=== PATIENT | female | born 1945 | race Two or more races ===

== ENCOUNTER 2018-06-15 14:09 | Inpatient (IN) | payer MEDICARE, MEDICAID ==
[2018-06-15] MEDS ORDERED: Lactated Ringer 1,000 ML IV ONE (14:35)
[2018-06-15 15:03] LABS: % BASOPHILS 0.7 % (0.0-2.0); % EOSINOPHILS 0.6 % (0.0-5.0); % LYMPHOCYTES 10.8 % (20.0-50.0); % NEUTROPHILS 81.9 % (40.0-80.0); BASOPHILE ABSOLUTE 0.1 Th/cumm (0-0.2); HEMATOCRIT 33.1 % (41.0-60); HEMOGLOBIN 11.3 gm/dL (12-16); LYMPHOCYTE ABSOLUTE 0.9 Th/cmm (1.5-3.0); MEAN CELL VOLUME 94.9 fl (81-100); MEAN CORPUSCULAR HEMOGLOBIN 32.3 pg (27.0-31.0); MEAN CORPUSCULAR HGB CONC 34.1 pg (28.0-36.0); MEAN PLATELET VOLUME 7.8 fl; MONOCYTE ABSOLUTE 0.5 Th/cmm (0.3-1.0); NEUTROPHILE ABSOLUTE 6.7 Th/cmm (1.8-8.0); PLATELET COUNT 175 Th/cmm (150-400); RED BLOOD COUNT 3.49 Mil/cmm (3.80-5.20); RED CELL DISTRIBUTION WIDTH 12.3 % (11.5-20.0); WHITE BLOOD COUNT 8.2 Th/cmm (4.8-10.8)
[2018-06-15 15:21] LABS: URINE BILIRUBIN SMALL (NEGATIVE); URINE BLOOD NEGATIVE (NEGATIVE); URINE GLUCOSE (UA) NEGATIVE (NEGATIVE); URINE KETONE TRACE mg/dL (NEGATIVE); URINE LEUKOCYTE ESTERASE NEGATIVE (NEGATIVE); URINE NITRATE NEGATIVE (NEGATIVE); URINE PH 5.5 (4.6 - 8.0); URINE PROTEIN 30 mg/dL (NEGATIVE); URINE SOURCE CLEAN C
[2018-06-15 15:22] LABS: ALB/GLOB RATIO 1.1 (1.0-1.8); ALKALINE PHOSPHATASE 57 U/L (34-104); AMYLASE SERUM 41 U/L (29-103); ANION GAP 16.1 (7.0-16.0); BILIRUBIN,TOTAL 0.5 mg/dL (0.3-1.0); BUN - UREA NITROGEN 20 mg/dL (7-25); CALCIUM SERUM 10.1 mg/dL (8.6-10.3); CARBON DIOXIDE 24.8 mEq/L (21.0-31.0); CHLORIDE 100 mEq/L (98-107); CREATININE - SERUM 0.8 mg/dL (0.6-1.2); GLUCOSE 100 mg/dL (70-105); LIPASE 32 U/L (11-82); PHOSPHOROUS 3.5 mg/dL (2.5-5.0); POTASSIUM SERUM 3.9 mEq/L (3.5-5.1); SGOT 14 U/L (13-39); SGPT/ALT 8 U/L (7-52); SODIUM SERUM 137 mEq/L (136-145); TOTAL PROTEIN,SERUM 7.5 gm/dL (6.0-8.3)
[2018-06-15 15:24] LABS: URINE CLARITY HAZY (CLEAR); URINE COLOR YELLOW; URINE MICROSCOPIC INDICATED? YES
[2018-06-15 15:28] LABS: URINE BACTERIA 1+ /hpf (NONE SEEN); URINE EPITHELIAL CELLS FEW /lpf (FEW); URINE WBC 0-2 /hpf (0-5)
--- NOTE | 2018-06-15 16:10 | ED Physician Chart ---
ED Chief Complaint/HPI - Patient Information Date Seen:: 06/15/18 Time Seen:: 14:33 Chief Complaint:: abd pain & anorexia History of Present Illness:: abd pain & anorexia in a patient with a h/o gallstones and pancreatitis. Allergies:: Allergies Allergy/AdvReac Type Severity Reaction Status Date / Time Penicillins Allergy Verified 06/15/18 14:33 Vitals:: Vital Signs - 8 hr 06/15/18 14:33 Temp 98.8 F HR 86 RR 17 BP 111/62 O2 Sat % 100 Historian:: Family Member, Other (Dr. Nash) Review:: Nurse's Note Reviewed ED Review of Systems - Review of Systems General/Constitutional: No fever, No chills, Weight loss, Weakness, No diaphoresis, Loss of appetite Skin: No skin lesions, No rash, No bruising Head: No headache, No light-headedness Eyes: No loss of vision, No pain, No diplopia ENT: No earache, No nasal drainage, No sore throat, No tinnitus Neck: No neck pain, No swelling, No thyromegaly, No stiffness, No mass noted Cardio Vascular: No chest pain, No palpitations, No PND, No orthopnea, No edema Pulmonary: No SOB, No cough, No sputum, No wheezing GI: Nausea, Vomiting, No diarrhea, Pain, No melena, No hematochezia, Constipation, No hematemesis G/U: No dysuria, No frequency, No hematuria Musculoskeletal: No bone or joint pain, Back pain, No muscle pain Endocrine: No polyuria, No polydipsia Psychiatric: No prior psych history, No depression, No anxiety, No suicidal ideation Hematopoietic: No bruising, No lymphadenopathy Allergic/Immuno: No urticaria, No angioedema Neurological: No syncope, No focal symptoms, No weakness, No paresthesia, No headache, No seizure, No dizziness, No confusion, No vertigo ED Past Medical History - Past Medical History Obtainable: No Past Medical History: Dyslipidemia, Dementia, Other (Alzheimer's; constipation) Psychiatricy History: Dementia Family Medical History - Family Member Mother History Unknown: Yes ED Physical Exam - Physical Examination General/Constitutional: Awake, Alert, Non-toxic appearing Other Gen/Cons comments:: chronically ill appearing c/o abd pain through to back doesn't know when she last passed gas or had a bowel movement. Head: Atraumatic Eyes: Lids, conjuctiva normal, PERRL, EOMI Other Skin comments:: dry mucous membranes (has been drinking alot of coffee) Neck: Nontender, Full ROM w/o pain, No nuchal rigidity, No stridor Respiratory: Nl effort/Exclusion, Clear to Auscultation, No Wheeze/Rhonchi/Rales Cardio Vascular: RRR, No murmur, gallop, rubs, NL S1 S2 GI: No hernia Other GI comments:: tinkles and rushes. not normal bowel sounds. distended. nonspecific tenderness. no peritoneal signs. lower abdomen midline scar. : No CVA tenderness Extremities: No tenderness or effusion, Full ROM, normal strength in all extremities, No edema, Normal digits & nails Neuro/Psych: Mood normal, No focal deficits Misc: Normal back, No paraspinal tenderness ED Labs/Radiology/EKG Results - Lab Results Results: Laboratory Tests 06/15/18 06/15/18 06/15/18 14:55 14:55 14:55 WBC 8.2 RBC 3.49 L Hgb 11.3 L Hct 33.1 L MCV 94.9 MCH 32.3 H MCHC Differential 34.1 RDW 12.3 Plt Count 175 MPV 7.8 Neutrophils % 81.9 H Lymphocytes % 10.8 L Monocytes % 6.0 Eosinophils % 0.6 Basophils % 0.7 Sodium 137 Potassium 3.9 Chloride 100 Carbon Dioxide 24.8 Anion Gap 16.1 H BUN 20 Creatinine 0.8 Est GFR ( Amer) TNP Est GFR (Non-Af Amer) TNP BUN/Creatinine Ratio 25.0 Glucose 100 Whole Bld Lactic Acid Calcium 10.1 Phosphorus 3.5 Magnesium 2.0 Total Bilirubin 0.5 AST 14 ALT 8 Alkaline Phosphatase 57 Troponin I 0.03 Total Protein 7.5 Albumin 4.0 Globulin 3.5 Albumin/Globulin Ratio 1.1 Amylase 41 Lipase 32 Urine Source Urine Color Urine Clarity Urine pH Ur Specific [place] Urine Protein Urine Glucose (UA) Urine Ketones Urine Blood Urine Nitrate Urine Bilirubin Urine Urobilinogen Ur Leukocyte Esterase Urine RBC Urine WBC Ur Epithelial Cells Urine Bacteria Urine Mucus 06/15/18 06/15/18 14:55 15:20 WBC RBC Hgb Hct MCV MCH MCHC Differential RDW Plt Count MPV Neutrophils % Lymphocytes % Monocytes % Eosinophils % Basophils % Sodium Potassium Chloride Carbon Dioxide Anion Gap BUN Creatinine Est GFR ( Amer) Est GFR (Non-Af Amer) BUN/Creatinine Ratio Glucose Whole Bld Lactic Acid 0.88 Calcium Phosphorus Magnesium Total Bilirubin AST ALT Alkaline Phosphatase Troponin I Total Protein Albumin Globulin Albumin/Globulin Ratio Amylase Lipase Urine Source CLEAN C Urine Color YELLOW Urine Clarity HAZY Urine pH 5.5 Ur Specific [place] >= 1.030 Urine Protein 30 H Urine Glucose (UA) NEGATIVE Urine Ketones TRACE Urine Blood NEGATIVE Urine Nitrate NEGATIVE Urine Bilirubin SMALL H Urine Urobilinogen 1.0 Ur Leukocyte Esterase NEGATIVE Urine RBC 2-5 Urine WBC 0-2 Ur Epithelial Cells FEW Urine Bacteria 1+ H Urine Mucus MODERATE ED Assessment - Assessment General Assessment: EKG from 14:57:42 p.m. reveals a fipped t wave in V1 and V2. spoke to Dr. Nash at 16:40 p.m. He will admit the patient. CT of abdomen and pelvis: s/p javi, no hydro, no free fluid, large amount of fecal content, ASVD, no SBO, ileus. ED Septic Shock - . Is Septic Shock (SBP<90, OR Lactate>4 mmol\L) present?: No - <6hrs of presentation: Vital Signs: Vital Signs - 8 hr 06/15/ 14:33 Temp 98.8 F HR 86 RR 17 BP 111/62 O2 Sat % 100 ED Reassessment (Disposition) - Reassessment Reassessment Condition:: Unchanged - Diagnosis Diagnosis:: Dehydration Abdominal pain Constipation Anemia Bilirubin in urine Early UTI vs. contamination - Patient Disposition Discharge/Transfer:: Acute Care (other hosp) Admitted to:: Med/Surg Spoke to:: Sami Nash Admitting Medical Physician:: Sami Nash Condition at Disposition:: Stable, Unchanged
[2018-06-15] MEDS ORDERED: Morphine Sulfate 2 mg/mL 1mL Syr IVP STA (16:12)
[2018-06-15] MEDS ORDERED: Morphine Sulfate 2 mg/mL 1mL Syr ONE (16:16)
[2018-06-15] MEDS ORDERED: Albuterol Nebulizer 2.5mg/3mL HHN PRN (16:47)
[2018-06-15] MEDS ORDERED: Ipratropium Neb 0.5 mg/2.5 mL UD IH PRN (16:47)
[2018-06-15] MEDS ORDERED: Maalox 30 mL Cup PO PRN (16:49)
[2018-06-15] MEDS ORDERED: Morphine Sulfate 2 mg/mL 1mL Syr IVP PRN (16:49)
[2018-06-15] MEDS ORDERED: Lactated Ringer 1,000 ML IV SCH (17:07)
[2018-06-15] MEDS ORDERED: Pneumococcal Vaccine 0.5 mL Vial IM ONE (18:46)
[2018-06-15 18:48] VITALS: BP 133/55
[2018-06-15] MEDS: POLYETHYLENE GLYCOL 3350 17 GM PACK PO SCH (18:54)
[2018-06-15] MEDS: Metoclopramide 5 mg/mL 2mL Vial IVP SCH (20:13)
[2018-06-15] MEDS ORDERED: LEVOFLOXACIN IV ONE (22:02)
[2018-06-15] MEDS: D5-0.9%NS 1,000 ML IV SCH (22:06)
[2018-06-15] MEDS: Levofloxacin 250mg/50mL 250 MG/50 ML BAG IV SCH (22:10)
[2018-06-15] MEDS ORDERED: Levofloxacin 250mg/50mL 250 MG/50 ML BAG IV ONE (22:10)
--- NOTE | 2018-06-16 08:15 | Diagnostic Imaging Report ---
CHEST X-RAY: AP view INDICATION: Right lower lobe crackles COMPARISON: None FINDINGS: Patient is rotated. There is suggestion of scoliosis. There may be mild compression deformity of T12. Increased interstitial lung markings are noted with no focal consolidation or effusions. Heart size is normal. Degenerative change of the spine are noted. Postsurgical changes of right upper quadrant are noted. IMPRESSION: Increased interstitial lung markings which may reflect chronic lung changes. No focal consolidation identified. Evidence of prior cholecystectomy. Additional findings as above.
--- NOTE | 2018-06-16 08:36 | Diagnostic Imaging Report ---
CT abdomen and pelvis without intravenous contrast Indication: Abdominal pain, rule out small bowel obstruction Comparison: None, Technique: Axial images were obtained from the lung bases to the bilateral proximal femurs without IV contrast. Coronal reconstructions were made. total DLP: 259 CTDI6.3 FINDINGS: Hypoventilatory atelectatic changes of the lung bases are noted. Assessment of the solid organs is limited due to lack of IV contrast. Exam is also limited due to motion. No focal hepatic lesions. Cholecystectomy clips are noted. The common bile measures up to 7 mm. No focal splenic lesions. Limited assessment of the pancreas demonstrates no obvious focal lesions. No focal adrenal lesions. No evidence of hydronephrosis or nephrolithiasis. There is a copious stool throughout the colon with gas-filled loops of bowel noted. Nonspecific gas and fluid-filled small bowel loops are noted. The appendix is not well-visualized. No free fluid or free air. Moderate atherosclerosis is noted. Degenerative changes of the spine are noted. Osteopenia is noted. There is mild compression fracture of the T12 vertebral body with lucency seen within the vertebral body. IMPRESSION: Copious stool throughout the colon joint gas-filled loops of bowel. Please correlate clinically for ileus and constipation. No definite evidence of small bowel obstruction. Evidence of prior cholecystectomy. Osteopenia. There is chronic appearing compression fracture of T12 with lucency seen within the vertebral body. This is indeterminate and may be related to patient's osteopenia. Underlying osseous lesion is less likely, however, correlation with old exams and short-term follow-up surveillance exam including possibly MRI or nuclear medicine bone scan may be obtained for further assessment. Atherosclerotic vascular disease.
[2018-06-16] MEDS: Metoclopramide 5 mg/mL 2mL Vial IVP SCH ×3 (09:46→22:41)
[2018-06-16] MEDS: POLYETHYLENE GLYCOL 3350 17 GM PACK PO SCH ×2 (09:47→16:48)
--- NOTE | 2018-06-16 11:33 | Consultation ---
DATE OF CONSULTATION: 06/16/2018 PSYCHIATRIC EVALUATION AND EXAMINATION PHYSICIAN REQUESTING CONSULTATION: Sami Nash D.O. REASON FOR CONSULTATION: Depression. HISTORY OF PRESENT ILLNESS: This is a 73-year-old patient, admitted for acute abdominal pain and ____ currently having the workup done. Staff was spoken to. The patient is interviewed. The patient is primarily Serbian speaking. The patient has been mentioning she has been living with her daughter and has developed abdominal pain and currently being worked up for acute abdominal pain, and the patient has been feeling frustrated and depressed and a psychiatric consultation is called. The patient is able to verbalize the concerns. Sleep is noted to be poor. Appetite is also noted to be poor. The patient, however, has been stating that the pain is the one that is making her depressed. The patient is not presenting with any threats to harm self or others. SOCIAL HISTORY: The patient is stating that she has 6 children and she is currently living with her daughter and they are very supportive. SUBSTANCE ABUSE HISTORY: None. PHYSICAL OR SEXUAL ABUSE HISTORY: None. LEGAL PROBLEMS: None at this time. MENTAL STATUS EXAMINATION: The patient is a 73-year-old thin built, cooperative. Eye contact is noted to be fair. Mood is noted to be depressed. Affect is constricted. The patient's insight and judgment at this time are noted to be improving. Impulse control is noted to be fair. The patient is provided with supportive therapy. The patient is encouraged to verbalize the concerns rather than to act out. DIAGNOSTIC IMPRESSION: Depressive disorder, not otherwise specified. PLAN: To continue the patient with supportive therapy and followup. [facility]# [id number]
--- NOTE | 2018-06-16 12:58 | History & Physical ---
ADMIT DATE: 06/15/2018 CHIEF COMPLAINT: Intractable vomiting and abdominal pain. HISTORY OF PRESENT ILLNESS: This is a 60-year-old female with history of dementia, psych disorder, and anemia, admitted through the ER from my office secondary to severe abdominal pain. The patient is bowling in a chair, unable to move into the ER and was seen by Dr. Suarez and admitted for further management. PAST MEDICAL HISTORY: As mentioned in history of present illness. PAST SURGICAL HISTORY: Status post gallbladder surgery. ALLERGIES: PENICILLIN. MEDICATIONS: The patient on our staff multivitamins. FAMILY HISTORY: Denies IV extremities. SOCIAL HISTORY: Nonsmoker, nondrinker. The patient lives with daughter. REVIEW OF SYSTEMS: This is limited check the patient is demented. The patient was seen in my office yesterday with the daughter. I have got information, but the patient has been deteriorating in the last few days. The patient's family, we will supplement secondary to abdominal pain, not eating or drinking. PHYSICAL EXAMINATION: VITAL SIGNS: Blood pressure 105/45, respiration 18, pulse 90, temperature 91. NECK: Supple. No mass. LUNGS: Equal breath sounds, few rhonchi. HEART: Regular rate and rhythm. Systolic ejection murmur. ABDOMEN: Supple globular, tender. EXTREMITIES: Positive excoriations and atrophy. NEUROLOGIC: Limited. LABORATORY DATA: WBC, hemoglobin 9.3, platelets 175. Sodium 137, potassium 3.9. BUN 20, creatinine 0.8, protein 30 1+ bacteria. ASSESSMENT AND PLAN: Intractable vomiting, abdominal pain, severe constipation, severe impact severe chronic infection, dehydration, anemia, acute back pain, compression fracture, thoracic spine and dementia. Continue the patient on oxygen and bronchodilator treatments. Continue on aggressive IV hydration. A CT abdomen and pelvis was noted to have a ____ stool throughout the colon and also showed a compression fracture of T12, patient referred to GI for evaluation. The patient getting ____ possible colonoscopy. The patient did have a fever yesterday of 101. Blood cultures were sent. We will continue to monitor the patient closely. JOB# [id number]
[2018-06-16] MEDS: D5-0.9%NS 1,000 ML IV SCH (13:44)
[2018-06-16] MEDS: Levofloxacin 250mg/50mL 250 MG/50 ML BAG IV SCH (22:41)
--- NOTE | 2018-06-16 23:20 | Consultation ---
DATE OF CONSULTATION: 06/16/2018 INPATIENT GASTROINTESTINAL CONSULTATION CONSULTING PHYSICIAN: Sami Nash DO REASON FOR CONSULTATION: Constipation, abdominal pain. HISTORY OF PRESENT ILLNESS: The patient is a 73-year-old female with at this point unknown past medical history, admitted to the hospital with abdominal pain and constipation. The patient is an unreliable historian, thus lot of this history is obtained by report. The patient is reporting that she has not had a bowel movement in about a week's time and that she has been having increasing amounts of abdominal pain generally all over her abdomen that also radiates to the back. Additionally, the patient is also complaining of hip pain and is unable to walk well. Apparently, this is the reason the patient was admitted, although the ER report is very scant on details. There is a preliminary read on the CT scan showing a large amount of stool content as well as ileus changes, but no obstruction and thus, the patient is now admitted to the hospital. She has been given breakfast and is unable to eat this. The patient does deny having a colonoscopy in the past. PAST MEDICAL HISTORY: The patient is not able to tell me what other medical problems she has. PAST SURGICAL HISTORY: There is a surgical scar on the abdomen. The patient does report a in the past. FAMILY HISTORY: Noncontributory. SOCIAL HISTORY: The patient denies drinking alcohol or using illicit drugs. ALLERGIES: Reported allergy to penicillin. REVIEW OF SYSTEMS: A 12-point review of systems was performed with the patient and is negative other than the pertinent positives are mentioned in the history of present illness. CURRENT MEDICATIONS: Include Tylenol, Maalox, albuterol, IV fluids, Atrovent, levofloxacin, Reglan, morphine, pantoprazole, polyethylene glycol at twice daily dosing. PHYSICAL EXAMINATION: VITAL SIGNS: Blood pressure is 104/56, pulse 76 beats per minute, respiratory rate of 18, temperature 98.7. GENERAL: The patient is sitting upright in bed. She is alert and oriented x 2. There is no apparent distress. HEAD, EARS, EYES, NOSE AND THROAT: Normocephalic, atraumatic appearing head. Pupils are equal and reactive to light. Extraocular muscles are intact. Moist mucous membranes are noted. NECK: Supple, no JVD or thyromegaly or lymphadenopathy. CHEST: Crackles at both bases. CARDIOVASCULAR: S1 and S2 present. Regular rate and rhythm. ABDOMEN: Soft. There is no obvious tenderness to palpation. There is no guarding or rebound. No fluid distention. EXTREMITIES: Frail appearing venous stasis changes bilaterally. Pulses are not present. SKIN: There is no obvious jaundice. LABORATORY DATA: White blood cell count 8.2, hemoglobin 11.3, platelet count 175. Sodium 137, BUN 20, creatinine 0.8. Total bilirubin 0.5, AST 14, ALT 8, lipase 32. IMAGING: There is a preliminary read on a CT scan showing ileus and a copious amount of stool content. IMPRESSION: This is a 73-year-old female with unknown medical history at this point. She is admitted to the hospital with 1 week of not having any bowel movement and abdominal pain and hip pain. 1. Constipation. 2. Hip pain. 3. Possible fecal impaction. DISCUSSION: It is unclear to me exactly what is going on here as the patient is an unreliable historian and the ER note is particularly scant in any details on the admission, but it does appear the patient is constipated and a CT scan seems to confirm this. Given the degree of constipation requiring inpatient admission to the hospital, we will go ahead and start treating this patient more aggressively and give her a slow bowel prep to help move stool through the colon. We will administer 4 liters of GoLYTELY in very slow manner over the course of 24 hours as well as enemas from below. We can track the progress with serial KUBs. RECOMMENDATIONS: 1. Start a slow bowel prep as mentioned above with 4 liters of GoLYTELY given slowly. 2. A 500 mL tap water enema every 12 hours. 3. Track the progress clinically as well as KUB. 4. The patient likely should have a colonoscopy, but this can be done as an outpatient electively. Thank you for allowing me to participate in her care. Please call me with further questions. JOB# [id number]
[2018-06-17] MEDS: D5-0.9%NS 1,000 ML IV SCH ×2 (02:26→14:33)
[2018-06-17 06:18] LABS: % BASOPHILS 1.7 % (0.0-2.0); % EOSINOPHILS 3.8 % (0.0-5.0); % LYMPHOCYTES 13.2 % (20.0-50.0); % NEUTROPHILS 73.3 % (40.0-80.0); BASOPHILE ABSOLUTE 0.1 Th/cumm (0-0.2); EOSINOPHILE ABSOLUTE 0.2 Th/cmm (0.1-0.4); HEMATOCRIT 31.1 % (41.0-60); HEMOGLOBIN 10.2 gm/dL (12-16); LYMPHOCYTE ABSOLUTE 0.8 Th/cmm (1.5-3.0); MEAN CELL VOLUME 95.9 fl (81-100); MEAN CORPUSCULAR HEMOGLOBIN 31.4 pg (27.0-31.0); MEAN CORPUSCULAR HGB CONC 32.7 pg (28.0-36.0); MEAN PLATELET VOLUME 7.9 fl; MONOCYTE ABSOLUTE 0.5 Th/cmm (0.3-1.0); NEUTROPHILE ABSOLUTE 4.2 Th/cmm (1.8-8.0); PLATELET COUNT 186 Th/cmm (150-400); RED BLOOD COUNT 3.25 Mil/cmm (3.80-5.20); WHITE BLOOD COUNT 5.8 Th/cmm (4.8-10.8)
[2018-06-17 06:35] LABS: ALBUMIN 2.8 gm/dL (3.7-5.3); ALKALINE PHOSPHATASE 43 U/L (34-104); ANION GAP 10.7 (7.0-16.0); BILIRUBIN,TOTAL 0.3 mg/dL (0.3-1.0); BUN - UREA NITROGEN 8 mg/dL (7-25); CALCIUM SERUM 8.4 mg/dL (8.6-10.3); CARBON DIOXIDE 28.4 mEq/L (21.0-31.0); CHLORIDE 106 mEq/L (98-107); CREATININE - SERUM 0.6 mg/dL (0.6-1.2); GLUCOSE 99 mg/dL (70-105); POTASSIUM SERUM 4.1 mEq/L (3.5-5.1); SGOT 11 U/L (13-39); SGPT/ALT 6 U/L (7-52); SODIUM SERUM 141 mEq/L (136-145); TOTAL PROTEIN,SERUM 5.5 gm/dL (6.0-8.3)
--- NOTE | 2018-06-17 08:12 | GI Progress Note ---
Subjective - Review of Systems Service Date: 06/17/18 Subjective: Pt reporting less abd pain today. She did have BM, but only had a small portion of golytely Objective - Results Result Diagrams: 06/17/18 05:50 06/17/18 05:50 Recent Labs: Laboratory Last Values WBC 5.8 Th/cmm (4.8-10.8) 06/17/18 05:50 RBC 3.25 Mil/cmm (3.80-5.20) L 06/17/18 05:50 Hgb 10.2 gm/dL (12-16) L 06/17/18 05:50 Hct 31.1 % (41.0-60) L 06/17/18 05:50 MCV 95.9 fl (81-100) 06/17/18 05:50 MCH 31.4 pg (27.0-31.0) H 06/17/18 05:50 MCHC Differential 32.7 pg (28.0-36.0) 06/17/18 05:50 RDW 12.0 % (11.5-20.0) 06/17/18 05:50 Plt Count 186 Th/cmm (150-400) 06/17/18 05:50 MPV 7.9 fl 06/17/18 05:50 Neutrophils % 73.3 % (40.0-80.0) 06/17/18 05:50 Lymphocytes % 13.2 % (20.0-50.0) L 06/17/18 05:50 Monocytes % 8.0 % (2.0-10.0) 06/17/18 05:50 Eosinophils % 3.8 % (0.0-5.0) 06/17/18 05:50 Basophils % 1.7 % (0.0-2.0) 06/17/18 05:50 Sodium 141 mEq/L (136-145) 06/17/18 05:50 Potassium 4.1 mEq/L (3.5-5.1) 06/17/18 05:50 Chloride 106 mEq/L (98-107) 06/17/18 05:50 Carbon Dioxide 28.4 mEq/L (21.0-31.0) 06/17/18 05:50 Anion Gap 10.7 (7.0-16.0) 06/17/18 05:50 BUN 8 mg/dL (7-25) 06/17/18 05:50 Creatinine 0.6 mg/dL (0.6-1.2) 06/17/18 05:50 Est GFR ( Amer) TNP 06/17/18 05:50 Est GFR (Non-Af Amer) TNP 06/17/18 05:50 BUN/Creatinine Ratio 13.3 06/17/18 05:50 Glucose 99 mg/dL (70-105) 06/17/18 05:50 Whole Bld Lactic Acid 0.88 mmol/L (0.60-1.99) 06/15/18 14:55 Calcium 8.4 mg/dL (8.6-10.3) L 06/17/18 05:50 Phosphorus 3.5 mg/dL (2.5-5.0) 06/15/18 14:55 Magnesium 2.0 mg/dL (1.9-2.7) 06/15/18 14:55 Total Bilirubin 0.3 mg/dL (0.3-1.0) 06/17/18 05:50 AST 11 U/L (13-39) L 06/17/18 05:50 ALT 6 U/L (7-52) L 06/17/18 05:50 Alkaline Phosphatase 43 U/L (34-104) 06/17/18 05:50 Ammonia 26 umol/L (16-53) 06/17/18 05:50 Troponin I 0.03 ng/mL (0.01-0.05) 06/15/18 14:55 B-Natriuretic Peptide 83.1 pg/mL (5.0-100.0) 06/17/18 05:50 Total Protein 5.5 gm/dL (6.0-8.3) L 06/17/18 05:50 Albumin 2.8 gm/dL (3.7-5.3) L 06/17/18 05:50 Globulin 2.7 gm/dL 06/17/18 05:50 Albumin/Globulin Ratio 1.0 (1.0-1.8) 06/17/18 05:50 Amylase 41 U/L (29-103) 06/15/18 14:55 Lipase 32 U/L (11-82) 06/15/18 14:55 Urine Source CLEAN C 06/15/18 15:20 Urine Color YELLOW 06/15/18 15:20 Urine Clarity HAZY (CLEAR) 06/15/18 15:20 Urine pH 5.5 (4.6 - 8.0) 06/15/18 15:20 Ur Specific [place] >= 1.030 (1.005-1.030) 06/15/18 15:20 Urine Protein 30 mg/dL (NEGATIVE) H 06/15/18 15:20 Urine Glucose (UA) NEGATIVE mg/dL (NEGATIVE) 06/15/18 15:20 Urine Ketones TRACE mg/dL (NEGATIVE) 06/15/18 15:20 Urine Blood NEGATIVE (NEGATIVE) 06/15/18 15:20 Urine Nitrate NEGATIVE (NEGATIVE) 06/15/18 15:20 Urine Bilirubin SMALL (NEGATIVE) H 06/15/18 15:20 Urine Urobilinogen 1.0 E.U./dL (0.2 - 1.0) 06/15/18 15:20 Ur Leukocyte Esterase NEGATIVE (NEGATIVE) 06/15/18 15:20 Urine RBC 2-5 /hpf (0-5) 06/15/18 15:20 Urine WBC 0-2 /hpf (0-5) 06/15/18 15:20 Ur Epithelial Cells FEW /lpf (FEW) 06/15/18 15:20 Urine Bacteria 1+ /hpf (NONE SEEN) H 06/15/18 15:20 Urine Mucus MODERATE /lpf (FEW) 06/15/18 15:20 - Physical Exam Vitals and I&O: Vital Signs Temp 96.2 F 06/17/18 07:33 Pulse 88 06/17/18 07:33 Resp 18 06/17/18 07:33 BP 127/72 06/17/18 07:33 Pulse Ox 99 06/17/18 07:33 Intake & Output 06/16/18 06/17/18 06/17/18 18:59 06:59 18:59 Intake Total 1000 1000 Output Total 1 Balance 1000 999 Weight (lbs) 39.463 kg Intake: Intake, IV Amount 1000 1000 D5-0.9%Ns 1,000 ml @ 80 1000 1000 mls/hr IV .[id number] [id number] Rx #:[id number] Output: Stool 1 Other: # Voids 1 Weight Source Bedscale Active Medications: Current Medications Acetaminophen (Tylenol) 650 mg PO Q4H PRN PRN Reason: Pain Or Fever above 101 Stop: 08/14/18 16:50 Last Admin: 06/15/18 20:34 Dose: 650 mg Al Hydrox/Mg Hydrox/Simethicone (Maalox) 30 ml PO Q6H PRN PRN Reason: Dyspepsia Stop: 08/14/18 16:48 Albuterol Sulfate (Albuterol 2.5mg/3ml Neb Ud) 2.5 mg HHN Q2HRT PRN PRN Reason: Shortness of Breath or Wheeze Stop: 08/14/18 16:46 Dextrose/Sodium Chloride (D5-0.9%Ns) 1,000 mls @ 80 mls/hr IV .[id number] [facility] Stop: 08/14/18 16:59 Last Admin: 06/17/18 02:26 Dose: 80 mls/hr Levofloxacin (Levaquin Pb) 250 mg in 50 mls @ 50 mls/hr IV Q24HR [facility] Stop: 08/14/18 21:59 Last Admin: 06/16/18 22:41 Dose: 100 mls/hr Influenza Virus Vaccine (Flu Ad) 0.5 ml IM .ONCE ONE Stop: 06/17/18 09:01 Ipratropium Vici (Atrovent Neb 0.5mg/2.5ml) 0.5 mg IH Q2HRT PRN PRN Reason: Shortness of Breath or Wheeze Stop: 08/14/18 16:46 Metoclopramide HCl (Reglan) 5 mg IVP TID [facility] Stop: 08/14/18 20:59 Last Admin: 06/16/18 22:41 Dose: 5 mg Morphine Sulfate (Morphine) 1 mg IVP Q4H PRN PRN Reason: Abdominal Pain Stop: 08/14/18 16:48 Ondansetron HCl (Zofran) 4 mg IV Q8H PRN PRN Reason: Nausea / Vomiting Stop: 08/14/18 16:50 Pantoprazole Sodium (Protonix) 40 mg IVP BID [facility] Stop: 08/14/18 16:59 Last Admin: 06/16/18 16:48 Dose: 40 mg Pneumococcal Polyvalent Vaccine (Pneumovax) 0.5 ml IM .ONCE ONE Stop: 06/17/18 09:01 Polyethylene Glycol (Miralax) 17 gm PO BID [facility] Stop: 08/14/18 16:59 Last Admin: 06/16/18 16:48 Dose: 17 gm General: Alert, Oriented x3 HEENT: Atraumatic Neck: Supple Cardiovascular: Regular rate Abdomen: Bowel sounds, Soft, no Tender, no Hepatomegaly, no Splenomegaly, no Distended, no Rebound, no Mass Extremities: no Cyanosis Assessment/Plan - Problem List Patient Problems: All Active Problems ABDOMINAL PAIN (Acute) - Assessment Assessment: # Abd pain # Constipation CT showing copious amount of stool in the colon, and pt reporting no BM in several days. She did have BM on 06/16, but did not drink golytely. Pain is improved. Plan: - suspect pain is from severe constipation and ileus. Pt encouraged to have more golytely to help clear the bowel (this is not for colonoscopy) - recommend outpt colo - needs strong bowel regimen on dc, suggest miralax bid - diet as tolerated
[2018-06-17] MEDS ORDERED: Pneumococcal Vaccine 0.5 mL Vial IM ONE (09:00)
[2018-06-17] MEDS ORDERED: Influenza Vaccine (65 yr & older) 0.5 ml Syr IM ONE (09:00)
[2018-06-17] MEDS: Metoclopramide 5 mg/mL 2mL Vial IVP SCH ×3 (09:18→21:30)
[2018-06-17] MEDS: POLYETHYLENE GLYCOL 3350 17 GM PACK PO SCH ×2 (11:02→16:46)
[2018-06-17] MEDS ORDERED: MINERAL OIL ENEMA 135 ML BOTTLE RC ONE (13:21)
--- NOTE | 2018-06-17 13:24 | Internal Medicine Prog Note ---
Internal Medicine Subjective - Subjective Patient seen and examined:: with staff, chart reviewed Patient is:: awake, verbal, interactive, in bed, talking, confused Patient Complaints of:: congestion, constipation, bloated, unable to sleep, weight loss Per staff patient has:: no adverse event, no episodes of fall, poor appetite, poor oral intake, agitated, noncompliant, tolerating meds, refusing care Internal Medicine Objective - Results Result Diagrams: 06/17/18 05:50 06/17/18 05:50 Recent Labs: Laboratory Last Values WBC 5.8 Th/cmm (4.8-10.8) 06/17/18 05:50 RBC 3.25 Mil/cmm (3.80-5.20) L 06/17/18 05:50 Hgb 10.2 gm/dL (12-16) L 06/17/18 05:50 Hct 31.1 % (41.0-60) L 06/17/18 05:50 MCV 95.9 fl (81-100) 06/17/18 05:50 MCH 31.4 pg (27.0-31.0) H 06/17/18 05:50 MCHC Differential 32.7 pg (28.0-36.0) 06/17/18 05:50 RDW 12.0 % (11.5-20.0) 06/17/18 05:50 Plt Count 186 Th/cmm (150-400) 06/17/18 05:50 MPV 7.9 fl 06/17/18 05:50 Neutrophils % 73.3 % (40.0-80.0) 06/17/18 05:50 Lymphocytes % 13.2 % (20.0-50.0) L 06/17/18 05:50 Monocytes % 8.0 % (2.0-10.0) 06/17/18 05:50 Eosinophils % 3.8 % (0.0-5.0) 06/17/18 05:50 Basophils % 1.7 % (0.0-2.0) 06/17/18 05:50 Sodium 141 mEq/L (136-145) 06/17/18 05:50 Potassium 4.1 mEq/L (3.5-5.1) 06/17/18 05:50 Chloride 106 mEq/L (98-107) 06/17/18 05:50 Carbon Dioxide 28.4 mEq/L (21.0-31.0) 06/17/18 05:50 Anion Gap 10.7 (7.0-16.0) 06/17/18 05:50 BUN 8 mg/dL (7-25) 06/17/18 05:50 Creatinine 0.6 mg/dL (0.6-1.2) 06/17/18 05:50 Est GFR ( Amer) TNP 06/17/18 05:50 Est GFR (Non-Af Amer) TNP 06/17/18 05:50 BUN/Creatinine Ratio 13.3 06/17/18 05:50 Glucose 99 mg/dL (70-105) 06/17/18 05:50 Whole Bld Lactic Acid 0.88 mmol/L (0.60-1.99) 06/15/18 14:55 Calcium 8.4 mg/dL (8.6-10.3) L 06/17/18 05:50 Phosphorus 3.5 mg/dL (2.5-5.0) 06/15/18 14:55 Magnesium 2.0 mg/dL (1.9-2.7) 06/15/18 14:55 Total Bilirubin 0.3 mg/dL (0.3-1.0) 06/17/18 05:50 AST 11 U/L (13-39) L 06/17/18 05:50 ALT 6 U/L (7-52) L 06/17/18 05:50 Alkaline Phosphatase 43 U/L (34-104) 06/17/18 05:50 Ammonia 26 umol/L (16-53) 06/17/18 05:50 Troponin I 0.03 ng/mL (0.01-0.05) 06/15/18 14:55 B-Natriuretic Peptide 83.1 pg/mL (5.0-100.0) 06/17/18 05:50 Total Protein 5.5 gm/dL (6.0-8.3) L 06/17/18 05:50 Albumin 2.8 gm/dL (3.7-5.3) L 06/17/18 05:50 Globulin 2.7 gm/dL 06/17/18 05:50 Albumin/Globulin Ratio 1.0 (1.0-1.8) 06/17/18 05:50 Amylase 41 U/L (29-103) 06/15/18 14:55 Lipase 32 U/L (11-82) 06/15/18 14:55 Urine Source CLEAN C 06/15/18 15:20 Urine Color YELLOW 06/15/18 15:20 Urine Clarity HAZY (CLEAR) 06/15/18 15:20 Urine pH 5.5 (4.6 - 8.0) 06/15/18 15:20 Ur Specific [place] >= 1.030 (1.005-1.030) 06/15/18 15:20 Urine Protein 30 mg/dL (NEGATIVE) H 06/15/18 15:20 Urine Glucose (UA) NEGATIVE mg/dL (NEGATIVE) 06/15/18 15:20 Urine Ketones TRACE mg/dL (NEGATIVE) 06/15/18 15:20 Urine Blood NEGATIVE (NEGATIVE) 06/15/18 15:20 Urine Nitrate NEGATIVE (NEGATIVE) 06/15/18 15:20 Urine Bilirubin SMALL (NEGATIVE) H 06/15/18 15:20 Urine Urobilinogen 1.0 E.U./dL (0.2 - 1.0) 06/15/18 15:20 Ur Leukocyte Esterase NEGATIVE (NEGATIVE) 06/15/18 15:20 Urine RBC 2-5 /hpf (0-5) 06/15/18 15:20 Urine WBC 0-2 /hpf (0-5) 06/15/18 15:20 Ur Epithelial Cells FEW /lpf (FEW) 06/15/18 15:20 Urine Bacteria 1+ /hpf (NONE SEEN) H 06/15/18 15:20 Urine Mucus MODERATE /lpf (FEW) 06/15/18 15:20 - Physical Exam Vitals and I&O: Vital Signs Temp 97.1 F 06/17/18 12:00 Pulse 80 06/17/18 12:00 Resp 18 06/17/18 12:00 BP 121/67 06/17/18 12:00 Pulse Ox 99 06/17/18 12:00 Intake & Output 06/16/18 06/17/18 06/17/18 18:59 06:59 18:59 Intake Total 1000 1000 Output Total 1 Balance 1000 999 Weight (lbs) 39.463 kg Intake: Intake, IV Amount 1000 1000 D5-0.9%Ns 1,000 ml @ 80 1000 1000 mls/hr IV .[id number] [facility] Rx #:[id number] Output: Stool 1 Other: # Voids 1 Weight Source Bedscale Active Medications: Current Medications Acetaminophen (Tylenol) 650 mg PO Q4H PRN PRN Reason: Pain Or Fever above 101 Stop: 08/14/18 16:50 Last Admin: 06/15/18 20:34 Dose: 650 mg Al Hydrox/Mg Hydrox/Simethicone (Maalox) 30 ml PO Q6H PRN PRN Reason: Dyspepsia Stop: 08/14/18 16:48 Albuterol Sulfate (Albuterol 2.5mg/3ml Neb Ud) 2.5 mg HHN Q2HRT PRN PRN Reason: Shortness of Breath or Wheeze Stop: 08/14/18 16:46 Dextrose/Sodium Chloride (D5-0.9%Ns) 1,000 mls @ 80 mls/hr IV .[id number] [facility] Stop: 08/14/18 16:59 Last Admin: 06/17/18 02:26 Dose: 80 mls/hr Levofloxacin (Levaquin Pb) 250 mg in 50 mls @ 50 mls/hr IV Q24HR [facility] Stop: 08/14/18 21:59 Last Admin: 06/16/18 22:41 Dose: 100 mls/hr Ipratropium [place] (Atrovent Neb 0.5mg/2.5ml) 0.5 mg IH Q2HRT PRN PRN Reason: Shortness of Breath or Wheeze Stop: 08/14/18 16:46 Metoclopramide HCl (Reglan) 5 mg IVP TID [facility] Stop: 08/14/18 20:59 Last Admin: 06/17/18 09:18 Dose: 5 mg Mineral Oil (Fleet Mineral Oil) 0 ml RC X1 ONE; Protocol Stop: 06/17/18 13:22 Morphine Sulfate (Morphine) 1 mg IVP Q4H PRN PRN Reason: Abdominal Pain Stop: 08/14/18 16:48 Ondansetron HCl (Zofran) 4 mg IV Q8H PRN PRN Reason: Nausea / Vomiting Stop: 08/14/18 16:50 Pantoprazole Sodium (Protonix) 40 mg IVP BID [facility] Stop: 01/18/19 16:59 Last Admin: 06/17/18 09:18 Dose: 40 mg Polyethylene Glycol (Miralax) 17 gm PO BID [facility] Stop: 08/14/18 16:59 Last Admin: 06/17/18 11:02 Dose: 17 gm General: demented, thin, bilateral temporal wasting, appears older HEENT: NC/AT, PERRLA, thinning hair, poor dentition Neck: Supple, No JVD, No thyromegaly, No LAD, deformity Lungs: congested, wheezing Abdomen: soft, tender, thin, non-distended, positive bowel sound Extremities: excoriation, contracture, deformity Neurological: no change, disorganized Internal Medicine Assmt/Plan - Assessment Assessment: ASSESSMENT AND PLAN: Intractable vomiting, abdominal pain, severe constipation, severe impact severe chronic infection, dehydration, anemia, acute back pain, compression fracture, thoracic spine and dementia. - Plan Plan: Continue the patient on oxygen and bronchodilator treatments. Continue on aggressive IV hydration. A CT abdomen and pelvis was noted to have a ___pos_ stool throughout the colon and also showed a compression fracture of T12, patient referred to GI for evaluation. The patient getting __may need__colonoscopy. Nutritional Asmnt/Malnutr-PDOC - Dietary Evaluation Malnutrition Findings (Please click <Entered> for more info): Nutritional Asmnt/Malnutrition Start: 06/16/18 14: 43 Text: Status: Complete Freq: Protocol: Document 06/16/18 14:43 DEANA (Rec: 06/16/18 15:05 DEANA [email or web address]) Nutritional Asmnt/Malnutrition Patient General Information Nutritional Screening High Risk Diagnosis abdominal pain, dehydration, constipation Pertinent Medical Hx/Surgical Hx dementia, psych disorder, anemia, s/p gallbladder surgery Subjective Information Pt resting in bed at time of visit. Unable to communicate w / pt d/t pt's [place] speaking and language barrier. Spoke to LUDWIN Spaulding and RN Jose who states pt finished <50% of breakfast today. Per MD notes, CT of abdomen shows fecal impaction and pt is noted to have poor appetite. Current Diet Order/ Nutrition Support full liquid, Ensure Enlive TID Pertinent Medications D5-0.9%Ns, levaquin, reglan, protonix, miralax Pertinent Labs 06/15 nutrition related labs WNL Nutritional Hx/Data Height 1.45 m Height (Calculated Centimeters) 144.8 Current Weight (lbs) 39.463 kg Weight (Calculated Kilograms) 39.5 Weight (Calculated Grams) 24213.5 Sarita Body Weight 94 lb Body Mass Index (BMI) 18.8 Weight Status Approriate GI Symptoms GI Symptoms Constipation Last BM none noted Difficult in: None Skin Integrity/Comment: coral ashley Estimated Nutritional Goals BEE in Kcals: Using Current wt Calories/Kcals/Kg 27-32 Kcals Calculated 4148-7282 Protein: Using Current wt Protein g/k.0 Protein Calculated 40 g Fluid: ml per MD Nutritional Problem 1. Problem Problem Inadequate food intake Etiology possible poor appetite d/t abdominal pain Signs/Symptoms: pt on full liquid diet, <50% breakfast finished Malnutrition Related to Morbid Obesity Malnutrition related to morbid obesity No Intervention/Recommendation Comments 1. Continue with full liquid diet and added Ensure Enlive TID per protocol. assist w/ meals as needed. Advance diet as tolerated when medically appropriate 2. Monitor PO intake, wt, labs and skin integrity 3. F/U as high risk in 2-3 days, 06/18- Expected Outcomes/Goals Expected Outcomes/Goals 1. PO intake to meet at least 75% of all meals 2. Wt stability, skin to remain intact, and nutrition related labs to approach normal limits Reviewed by Hyacinth Chan RD
[2018-06-17] MEDS: Levofloxacin 250mg/50mL 250 MG/50 ML BAG IV SCH (21:30)
[2018-06-18] MEDS: D5-0.9%NS 1,000 ML IV SCH (05:44)
--- NOTE | 2018-06-18 07:52 | GI Progress Note ---
Subjective - Review of Systems Service Date: 06/18/18 Subjective: Pt had 4 BMs overnight, feeling better Objective - Results Result Diagrams: 06/17/18 05:50 06/17/18 05:50 Recent Labs: Laboratory Last Values WBC 5.8 Th/cmm (4.8-10.8) 06/17/18 05:50 RBC 3.25 Mil/cmm (3.80-5.20) L 06/17/18 05:50 Hgb 10.2 gm/dL (12-16) L 06/17/18 05:50 Hct 31.1 % (41.0-60) L 06/17/18 05:50 MCV 95.9 fl (81-100) 06/17/18 05:50 MCH 31.4 pg (27.0-31.0) H 06/17/18 05:50 MCHC Differential 32.7 pg (28.0-36.0) 06/17/18 05:50 RDW 12.0 % (11.5-20.0) 06/17/18 05:50 Plt Count 186 Th/cmm (150-400) 06/17/18 05:50 MPV 7.9 fl 06/17/18 05:50 Neutrophils % 73.3 % (40.0-80.0) 06/17/18 05:50 Lymphocytes % 13.2 % (20.0-50.0) L 06/17/18 05:50 Monocytes % 8.0 % (2.0-10.0) 06/17/18 05:50 Eosinophils % 3.8 % (0.0-5.0) 06/17/18 05:50 Basophils % 1.7 % (0.0-2.0) 06/17/18 05:50 Sodium 141 mEq/L (136-145) 06/17/18 05:50 Potassium 4.1 mEq/L (3.5-5.1) 06/17/18 05:50 Chloride 106 mEq/L (98-107) 06/17/18 05:50 Carbon Dioxide 28.4 mEq/L (21.0-31.0) 06/17/18 05:50 Anion Gap 10.7 (7.0-16.0) 06/17/18 05:50 BUN 8 mg/dL (7-25) 06/17/18 05:50 Creatinine 0.6 mg/dL (0.6-1.2) 06/17/18 05:50 Est GFR ( Amer) TNP 06/17/18 05:50 Est GFR (Non-Af Amer) TNP 06/17/18 05:50 BUN/Creatinine Ratio 13.3 06/17/18 05:50 Glucose 99 mg/dL (70-105) 06/17/18 05:50 Whole Bld Lactic Acid 0.88 mmol/L (0.60-1.99) 06/15/18 14:55 Calcium 8.4 mg/dL (8.6-10.3) L 06/17/18 05:50 Phosphorus 3.5 mg/dL (2.5-5.0) 06/15/18 14:55 Magnesium 2.0 mg/dL (1.9-2.7) 06/15/18 14:55 Total Bilirubin 0.3 mg/dL (0.3-1.0) 06/17/18 05:50 AST 11 U/L (13-39) L 06/17/18 05:50 ALT 6 U/L (7-52) L 06/17/18 05:50 Alkaline Phosphatase 43 U/L (34-104) 06/17/18 05:50 Ammonia 26 umol/L (16-53) 06/17/18 05:50 Troponin I 0.03 ng/mL (0.01-0.05) 06/15/18 14:55 B-Natriuretic Peptide 83.1 pg/mL (5.0-100.0) 06/17/18 05:50 Total Protein 5.5 gm/dL (6.0-8.3) L 06/17/18 05:50 Albumin 2.8 gm/dL (3.7-5.3) L 06/17/18 05:50 Globulin 2.7 gm/dL 06/17/18 05:50 Albumin/Globulin Ratio 1.0 (1.0-1.8) 06/17/18 05:50 Amylase 41 U/L (29-103) 06/15/18 14:55 Lipase 32 U/L (11-82) 06/15/18 14:55 Urine Source CLEAN C 06/15/18 15:20 Urine Color YELLOW 06/15/18 15:20 Urine Clarity HAZY (CLEAR) 06/15/18 15:20 Urine pH 5.5 (4.6 - 8.0) 06/15/18 15:20 Ur Specific [place] >= 1.030 (1.005-1.030) 06/15/18 15:20 Urine Protein 30 mg/dL (NEGATIVE) H 06/15/18 15:20 Urine Glucose (UA) NEGATIVE mg/dL (NEGATIVE) 06/15/18 15:20 Urine Ketones TRACE mg/dL (NEGATIVE) 06/15/18 15:20 Urine Blood NEGATIVE (NEGATIVE) 06/15/18 15:20 Urine Nitrate NEGATIVE (NEGATIVE) 06/15/18 15:20 Urine Bilirubin SMALL (NEGATIVE) H 06/15/18 15:20 Urine Urobilinogen 1.0 E.U./dL (0.2 - 1.0) 06/15/18 15:20 Ur Leukocyte Esterase NEGATIVE (NEGATIVE) 06/15/18 15:20 Urine RBC 2-5 /hpf (0-5) 06/15/18 15:20 Urine WBC 0-2 /hpf (0-5) 06/15/18 15:20 Ur Epithelial Cells FEW /lpf (FEW) 06/15/18 15:20 Urine Bacteria 1+ /hpf (NONE SEEN) H 06/15/18 15:20 Urine Mucus MODERATE /lpf (FEW) 06/15/18 15:20 - Physical Exam Vitals and I&O: Vital Signs Temp 99.2 F 06/18/18 03:00 Pulse 90 06/18/18 07:10 Resp 18 06/18/18 07:10 BP 112/59 06/18/18 03:00 Pulse Ox 96 06/18/18 07:10 Intake & Output 06/17/18 06/18/18 06/18/18 18:59 06:59 18:59 Intake Total 775.533 3890 Output Total 2 Balance 209.388 7123 Weight (lbs) 44.543 kg Intake: Intake, IV Amount 250.323 7197 D5-0.9%Ns 1,000 ml @ 80 160.500 9794 mls/hr IV .[id number] [facility] Rx #:[id number] Levofloxacin 250mg/50mL 50 250 mg In 50 ml @ 50 mls/ hr IV Q24HR [facility] Rx#: [id number] Output: Stool 2 Other: # Voids 1 Weight Source Bedscale Active Medications: Current Medications Acetaminophen (Tylenol) 650 mg PO Q4H PRN PRN Reason: Pain Or Fever above 101 Stop: 08/14/18 16:50 Last Admin: 06/15/18 20:34 Dose: 650 mg Al Hydrox/Mg Hydrox/Simethicone (Maalox) 30 ml PO Q6H PRN PRN Reason: Dyspepsia Stop: 08/14/18 16:48 Albuterol Sulfate (Albuterol 2.5mg/3ml Neb Ud) 2.5 mg HHN Q2HRT PRN PRN Reason: Shortness of Breath or Wheeze Stop: 08/14/18 16:46 Dextrose/Sodium Chloride (D5-0.9%Ns) 1,000 mls @ 80 mls/hr IV .[id number] [facility] Stop: 08/14/18 16:59 Last Admin: 06/18/18 05:44 Dose: 80 mls/hr Levofloxacin (Levaquin Pb) 250 mg in 50 mls @ 50 mls/hr IV Q24HR [facility] Stop: 08/14/18 21:59 Last Infusion: 06/17/18 22:00 Dose: Infused Ipratropium [place] (Atrovent Neb 0.5mg/2.5ml) 0.5 mg IH Q2HRT PRN PRN Reason: Shortness of Breath or Wheeze Stop: 08/14/18 16:46 Metoclopramide HCl (Reglan) 5 mg IVP TID [facility] Stop: 08/14/18 20:59 Last Admin: 06/17/18 21:30 Dose: 5 mg Morphine Sulfate (Morphine) 1 mg IVP Q4H PRN PRN Reason: Abdominal Pain Stop: 08/14/18 16:48 Ondansetron HCl (Zofran) 4 mg IV Q8H PRN PRN Reason: Nausea / Vomiting Stop: 08/14/18 16:50 Pantoprazole Sodium (Protonix) 40 mg IVP BID [facility] Stop: 08/14/18 16:59 Last Admin: 06/17/18 16:47 Dose: 40 mg Polyethylene Glycol (Miralax) 17 gm PO BID [facility] Stop: 08/14/18 16:59 Last Admin: 06/17/18 16:46 Dose: 17 gm General: Alert, Oriented x3 HEENT: Atraumatic Neck: Supple Cardiovascular: Regular rate Abdomen: Bowel sounds, Soft, no Tender, no Hepatomegaly, no Splenomegaly, no Distended, no Rebound, no Mass Extremities: no Cyanosis Assessment/Plan - Problem List Patient Problems: All Active Problems ABDOMINAL PAIN (Acute) - Assessment Assessment: # Abd pain # Constipation CT showing copious amount of stool in the colon, and pt reporting no BM in several days. Now feeling better after having several BMs with golytely prep. Plan: - suspect pain is from severe constipation and ileus. - recommend outpt colo - needs strong bowel regimen on dc, suggest miralax bid - diet as tolerated GI to see intermittently, please call with any questions
[2018-06-18] MEDS: POLYETHYLENE GLYCOL 3350 17 GM PACK PO SCH (08:42)
[2018-06-18] MEDS: Metoclopramide 5 mg/mL 2mL Vial IVP SCH ×2 (08:42→13:11)
[2018-06-18 12:09] LABS: FOLIC ACID 15.3 ng/mL (>3.0)
--- NOTE | 2018-06-18 14:47 | Discharge Summary ---
DATE OF DISCHARGE: 06/18/2018 CHIEF COMPLAINT: Intractable vomiting, abdominal pain. FINAL DIAGNOSES: Abdominal pain secondary to severe constipation, urinary tract infection, history of intractable vomiting, dehydration, anemia, acute on chronic back pain secondary to compression fracture, thoracic spine, and dementia. HISTORY: This is a 60-year-old female with history of dementia, psych disorder, anemia, admitted through the ER secondary to severe abdominal pain. The patient admitted for further management. PHYSICAL EXAMINATION: VITAL SIGNS: Blood pressure 140/59, respiratory rate 18, pulse 96, m temperature 99.0. GENERAL: An elderly female, appears chronically ill, appears older. NECK: Supple. No mass. LUNGS: Equal breath sounds, few rhonchi. HEART: Regular rate and rhythm with systolic ejection murmur. ABDOMEN: Soft, globular. EXTREMITIES: Positive excoriation. NEUROLOGIC: Limited. HOSPITAL COURSE: The patient was admitted to medical floor, continued on aggressive IV hydration. The patient started on IV antibiotic for coverage for urinary tract infection and started on laxative as well. The patient ____ adjustment of psychotropic medication. Dr. Bauer saw the patient for GI and was given laxative. The patient was also referred to physical therapy. The patient is severely debilitated. The daughter decided for a Intermediate Facility placement. CONDITION ON DISCHARGE: Fair. DISCHARGE INSTRUCTIONS: The patient to be discharged to ____ [place] per family's request under the service of ____ JOB# [id number]
[2018-06-19] MEDS ORDERED: Pantoprazole 40 mg EC Tab PO SCH (09:00)
== END 2018-06-18 15:45 | DRG 391 ==
LOC: ER 14:09 → MSI 17:00
PROVIDERS: ADMIT Internal Medicine; ATTEND Internal Medicine
DX: K59.09 Other constipation (principal); E43 Unspecified severe protein-calorie malnutrition; M48.54XA Collapsed vertebra, not elsewhere classified, thoracic region, initial encounter for fracture; N39.0 Urinary tract infection, site not specified; D64.9 Anemia, unspecified; F32.9 Major depressive disorder, single episode, unspecified; R53.81 Other malaise; E78.5 Hyperlipidemia, unspecified; G30.9 Alzheimer's disease, unspecified; F02.80 Dementia in other diseases classified elsewhere, unspecified severity, without behavioral disturbance, psychotic disturbance, mood disturbance, and anxiety; E86.0 Dehydration; G89.29 Other chronic pain; Z68.21 Body mass index [BMI] 21.0-21.9, adult; Z88.0 Allergy status to penicillin
CPT/HCPCS: 36415-UA; 71045-TC; 80053-TC; 81001-TC; 82140-TC; 82150-TC; 82607-90; 82746-90; 83605; 83690-TC; 83735-TC; 83880-TC; 84100-TC; 84484-TC; 85025-TC; 87086-90; 90732; 93005; 94760; 96374; 96375; 96376; 97530; C9113; J1956; J2270; J2765; J7042; X3401; X3904; Z7610